=== PATIENT | male | born 1970 | race Caucasian/White ===

== ENCOUNTER 2021-09-14 10:48 | Emergency (ER) | payer BC, SELFPAY ==
[2021-09-14 12:38] VITALS: BP 0/0; PULSE 0; RESP 0; TEMP -17.7; TEMP 0; O2SAT 0
== END 2021-09-14 12:41 | disposition left against medical advice (07) ==
LOC: UTC 10:52
PROVIDERS: Emergency Provider Nurse Practitioner; PCP Family Medicine
DX: Z53.21 Procedure and treatment not carried out due to patient leaving prior to being seen by health care provider (principal)